=== PATIENT | male | born 1990 | race Caucasian/White ===

== ENCOUNTER 2021-04-26 19:56 | Inpatient (IN) | payer OTHER ==
[2021-04-26 21:28] VITALS: BMI 27.7
[2021-04-26] MEDS ORDERED: IBUPROFEN 400 MG TABLET (FP) PO PRN (23:30)
[2021-04-26] MEDS ORDERED: MENTHOL/PHENOL 1 EACH UD MM PRN (23:30)
[2021-04-26] MEDS ORDERED: MAGNESIUM HYDROX 2400MG/30ML ORAL SUSPENSION 30 ML CUP PO PRN (23:30)
[2021-04-26] MEDS ORDERED: MAGNESIUM CITRATE 300 ML BOTTLE PO PRN (23:30)
[2021-04-26] MEDS ORDERED: METHOCARBAMOL 500 MG TABLET PO PRN (23:30)
[2021-04-26] MEDS ORDERED: MAG HYDROX/AL HYDROX/SIMETH 30 ML UNIT-DOSE CUP PO PRN (23:30)
[2021-04-26] MEDS ORDERED: NICOTINE POLACRILEX 2 MG GUM BUC PRN (23:30)
[2021-04-26] MEDS ORDERED: ONDANSETRON *ODT* 4 MG TABLET SL PRN (23:30)
[2021-04-26] MEDS ORDERED: ACETAMINOPHEN 325 MG TABLET (FP) PO PRN (23:30)
[2021-04-26] MEDS ORDERED: BISMUTH SUBSALICYLATE 524 MG/30 ML PO PRN (23:30)
[2021-04-26] MEDS ORDERED: LORazepam 1 MG TABLET PO PRN (23:30)
[2021-04-27] MEDS: LORazepam 2 MG TABLET PO SCH ×5 (00:34→21:59)
[2021-04-27] MEDS: hydrOXYzine PAMOATE 25 MG CAPSULE (FP) PO SCH ×5 (06:07→21:59)
[2021-04-27] MEDS ORDERED: SERTRALINE HCL PO SCH (10:00)
[2021-04-27] MEDS ORDERED: SERTRALINE HCL 25 MG TABLET (FP) PO SCH (10:00)
[2021-04-27 10:10] LABS: HEMATOCRIT 42.2 % (35.4-49); HEMOGLOBIN 14.2 GM/dL (11.7-16.9); MCHC 33.5 g/dl (32.0-35.9); MEAN CELL VOLUME 89.6 fl (80-96); MEAN PLT VOLUME 7.9 fl (7.5-11.1); PLATELET COUNT 263 10^3/uL (134-434); RBC 4.71 M/mm3 (4.00-5.60); RDW 13.5 % (11.9-15.9); WHITE BLOOD COUNT 4.9 K/mm3 (4.0-10.0)
[2021-04-27] MEDS: PRENATAL VITAMINS W/ FOLIC ACID TABLET (FP) PO SCH (10:12)
[2021-04-27 10:13] LABS: ALBUMIN 3.8 g/dl (3.4-5.0); BLOOD UREA NITROGEN 10.7 mg/dL (7-18); CALCIUM 9.1 mg/dL (8.5-10.1)
[2021-04-27 10:16] LABS: CREATININE 0.9 mg/dL (0.55-1.3)
[2021-04-27 10:17] LABS: BILIRUBIN,TOTAL 2.8 mg/dL (0.2-1)
[2021-04-27 10:24] LABS: TOT PROT 6.6 g/dl (6.4-8.2)
[2021-04-27] MEDS ORDERED: ACAMPROSATE CALCIUM 333 MG TABLET.DR PO SCH (14:00)
[2021-04-27] MEDS: THIAMINE HCL 100 MG TABLET (FP) PO SCH (21:59)
[2021-04-27] MEDS: MELATONIN 5 MG TABLETS PO SCH (21:59)
[2021-04-28] MEDS: LORazepam 1 MG TABLET PO SCH ×4 (06:36→22:19)
[2021-04-28] MEDS: hydrOXYzine PAMOATE 25 MG CAPSULE (FP) PO SCH ×5 (06:37→22:19)
[2021-04-28] MEDS: PRENATAL VITAMINS W/ FOLIC ACID TABLET (FP) PO SCH (10:23)
[2021-04-28] MEDS: ACETAMINOPHEN 325 MG TABLET (FP) PO PRN (22:17)
[2021-04-28] MEDS: MELATONIN 5 MG TABLETS PO SCH (22:19)
[2021-04-28] MEDS: THIAMINE HCL 100 MG TABLET (FP) PO SCH (22:19)
[2021-04-29] MEDS ORDERED: LORazepam 0.5 MG TABLET PO PRN
[2021-04-29] MEDS: hydrOXYzine PAMOATE 25 MG CAPSULE (FP) PO SCH ×5 (05:23→22:17)
[2021-04-29] MEDS: LORazepam 0.5 MG TABLET PO SCH ×4 (05:23→22:17)
[2021-04-29] MEDS: PRENATAL VITAMINS W/ FOLIC ACID TABLET (FP) PO SCH (10:08)
[2021-04-29] MEDS: ACETAMINOPHEN 325 MG TABLET (FP) PO PRN (10:09)
[2021-04-29] MEDS: THIAMINE HCL 100 MG TABLET (FP) PO SCH (22:17)
[2021-04-29] MEDS: MELATONIN 5 MG TABLETS PO SCH (22:17)
[2021-04-30] MEDS ORDERED: LORazepam 0.5 MG TABLET PO ONE (05:00)
[2021-04-30] MEDS: hydrOXYzine PAMOATE 25 MG CAPSULE (FP) PO SCH (05:45)
[2021-04-30 08:54] VITALS: BP 141/89; PULSE 113; TEMP 96.8
== END 2021-04-30 09:39 | disposition home or self-care (01) | DRG 775 ==
LOC: YASAS 19:56 → Y3N 22:14
PROVIDERS: ADMIT Allergy & Immunology; ATTEND Allergy & Immunology
PROC: HZ2ZZZZ Detoxification Services for Substance Abuse Treatment (ICD-10-PCS; principal; 2021-04-26)
DX: F13.230 Sedative, hypnotic or anxiolytic dependence with withdrawal, uncomplicated (principal); F10.10 Alcohol abuse, uncomplicated; F12.10 Cannabis abuse, uncomplicated; F17.290 Nicotine dependence, other tobacco product, uncomplicated; M54.5 Low back pain; G89.29 Other chronic pain; Z86.69 Personal history of other diseases of the nervous system and sense organs
CPT/HCPCS: 36415; 80053; 85027; 86780; C9803; U0003; U0005